=== PATIENT | female | born 1955 ===

== ENCOUNTER 2017-12-26 10:18 | Outpatient (CLI) | payer MEDICARE ==
--- NOTE | 2017-12-27 08:20 | Ultrasound Report ---
THYROID ULTRASOUND:12/26/17 10:18:00 CLINICAL: Left lung cancer. FINDINGS: High-resolution ultrasound demonstrated a normal size thyroid with normal contour and overall echogenicity. The right lobe measures 3.8 x 1.4 x 1.3cm. The left lobe measures 3.5 x 1.2 x 1.9 cm. The isthmus measures 3 mm AP thickness. A few tiny bilateral benign cysts. A left lower pole cyst measures 1.0 x 0.7 x 1.0 cm and is the largest. No solid nodule. No mass. IMPRESSION: A few benign thyroid cysts. No mass.
== END 2017-12-26 10:19 | disposition home or self-care (01) ==
LOC: SPVWC 10:18
PROVIDERS: ATTEND Internal Medicine Hematology & Oncology
DX: E04.1 Nontoxic single thyroid nodule (principal); C34.92 Malignant neoplasm of unspecified part of left bronchus or lung
CPT/HCPCS: 76536